=== PATIENT | female | born 1955 | race African-American/Black ===

== ENCOUNTER 2016-07-03 10:25 | Emergency (ER) | payer MEDICAID, OTHER ==
[~2016-07-03] VITALS: Ht 160 cm; Wt 98.0 kg
[~2016-07-03 10:25] MED LIST: ASPI325T2 PO; ATOR10TA PO; CLOP75TA2 PO; LEVO88TA7 PO; METO-296 PO; PROT40 PO; SIME1LIQ MC
[2016-07-03 12:24] LABS: BASOPHILS % 0.3 % (0.0-2.0); DIFFERENTIAL COMMENT 0; HEMATOCRIT. 43.4 % (36.0-48.0); MEAN CORPUSCULAR HEMOGLOBIN 25.4 pg (28.0-32.0); MEAN CORPUSCULAR HGB CONC 32.3 g/dL (31.0-37.0); MEAN CORPUSCULAR VOLUME 78.7 fL (81.0-99.0); MEAN PLATELET VOLUME 9.5 fl (7.4-10.4); MONOCYTES % 6.2 % (2.0-8.0); NEUTROPHILS % 41.5 % (40.0-76.0); PLATELET 149 x1000/uL (130-400); RED BLOOD CELL COUNT 5.51 mill/uL (4.2-5.4); RED CELL DISTRIBUTION WIDTH 15.7 % (11.6-14.6); WHITE BLOOD COUNT 5.6 x1000/uL (4.5-11.0)
[2016-07-03 12:25] LABS: CHLORIDE 103 mEq/L (98-107); INDEX HEMOLYSI 1 (1-3); INDEX ICTERIC 1 (1-4); INDEX LIPEMIC 1 (1-3)
[2016-07-03 12:31] LABS: ALANINE AMINOTRANSFERASE 18 IU/L (13-61); ANION GAP 11; CALCIUM 9.6 mg/dL (8.5-10.1); CARBON DIOXIDE 32 mEq/L (21-32); LIPASE 100 IU/L (73-393); UREA NITROGEN BLOOD 9 mg/dL (7-21); eGFR > 60 mL/min (>60)
[2016-07-03 13:17] LABS: CLARITY URINE CLEAR (CLEAR); COLOR URINE YELLOW (YELLOW); GLUCOSE URINE NEGATIVE (NEGATIVE); KETONES URINE NEGATIVE (NEGATIVE); LEUKOCYTE ESTERASE URINE TRACE (NEGATIVE); NITRITE URINE NEGATIVE (NEGATIVE); OCCULT BLOOD URINE NEGATIVE (NEGATIVE); PH URINE 5.5 (4.5-8.0); PROTEIN URINE NEGATIVE (NEGATIVE); SPECIFIC GRAVITY URINE 1.017 (1.005-1.030)
[2016-07-03] MEDS ORDERED: LEVOFLOXACIN 500MG TABLET PO ONE (13:30)
[2016-07-03 13:37] LABS: BACTERIA URINE TRACE; RBC URINE NONE SEEN /hpf (0-2); SQUAMOUS EPITHELIAL CELL URINE 1+ /lpf (RARE/1+); WBC URINE 0-2 /hpf (0-2)
[2016-07-03] MEDS ORDERED: ACETAMINOPHEN 325MG TABLET PO ONE (13:45)
[2016-07-03 14:09] VITALS: BP 140/80
== END 2016-07-03 14:17 | disposition home or self-care (01) ==
LOC: ER 12:06
DX: K59.09 Other constipation (principal); N39.0 Urinary tract infection, site not specified; R10.2 Pelvic and perineal pain; R10.9 Unspecified abdominal pain; R39.15 Urgency of urination; I10 Essential (primary) hypertension; E78.5 Hyperlipidemia, unspecified; J45.909 Unspecified asthma, uncomplicated; Z79.82 Long term (current) use of aspirin; Z79.899 Other long term (current) drug therapy
CPT/HCPCS: 36415; 74022; 80053; 81001; 83690; 85025; 99285

== ENCOUNTER 2018-03-07 07:38 | Emergency (ER) | payer OTHER ==
[~2018-03-07] VITALS: Ht 162.6 cm; Wt 85.5 kg
[~2018-03-07 07:38] MED LIST changes: +ASPI-986 PO; -ASPI325T2 PO; +CLOP75TA16 PO; -CLOP75TA2 PO; -METO-296 PO; +METO-396 PO
[2018-03-07] MEDS ORDERED: PHENAZOPYRIDINE HCL 100MG TABLET PO ONE (08:30)
[2018-03-07] MEDS ORDERED: ACETAMINOPHEN 325MG TABLET PO ONE (08:30)
[2018-03-07] MEDS ORDERED: KETOROLAC 15MG/ML VIAL IM ONE (08:30)
[2018-03-07] MEDS ORDERED: SODIUM CHLORIDE 0.9% 1,000 ML IV ONE (09:15)
[2018-03-07 09:27] LABS: CLARITY URINE CLEAR (CLEAR); COLOR URINE ORANGE (YELLOW); KETONES URINE NEGATIVE (NEGATIVE); LEUKOCYTE ESTERASE URINE NEGATIVE (NEGATIVE); NITRITE URINE NEGATIVE (NEGATIVE); OCCULT BLOOD URINE 3+ (NEGATIVE); PH URINE 5.5 (4.5-8.0); PROTEIN URINE NEGATIVE (NEGATIVE); SPECIFIC GRAVITY URINE 1.011 (1.005-1.030); UROBILINOGEN URINE 0.2 E.U./dL (0.2-1.0)
[2018-03-07 10:46] LABS: BASOPHILS % 0.9 % (0.0-2.0); EOSINOPHILS % 0.3 % (0.0-5.0); HEMATOCRIT. 39.2 % (36.0-48.0); HEMOGLOBIN. 12.7 g/dL (12.0-16.0); LYMPHOCYTES % 12.5 % (20.0-50.0); MEAN CORPUSCULAR HEMOGLOBIN 25.6 pg (28.0-32.0); MEAN CORPUSCULAR VOLUME 78.7 fL (81.0-99.0); MEAN PLATELET VOLUME 9.5 fl (7.4-10.4); NEUTROPHILS % 82.3 % (40.0-76.0); PLATELET 145 x1000/uL (130-400); RED BLOOD CELL COUNT 4.98 mill/uL (4.2-5.4); RED CELL DISTRIBUTION WIDTH 15.3 % (11.6-14.6)
[2018-03-07 10:51] LABS: CHLORIDE 107 mEq/L (98-107); INR 1.1; PROTHROMBIN TIME 10.6 sec (9.1-11.1)
[2018-03-07] MEDS ORDERED: OXYCODONE HCL 5MG TABLET PO ONE (11:45)
[2018-03-07 12:32] VITALS: BP 168/85
== END 2018-03-07 12:39 | disposition home or self-care (01) ==
LOC: ER 08:24
DX: R10.2 Pelvic and perineal pain (principal); R31.9 Hematuria, unspecified; N32.89 Other specified disorders of bladder; E86.0 Dehydration; R79.89 Other specified abnormal findings of blood chemistry
CPT/HCPCS: 36415; 74176; 80053; 81003; 83690; 85025; 85610; 96360; 96361; 96372; 99285; J1885; J7030; P9612

== ENCOUNTER 2018-03-07 21:28 | Inpatient (IN) | payer MEDICAID, OTHER ==
[~2018-03-07] VITALS: Ht 160 cm; Wt 93.0 kg
[2018-03-08] MEDS ORDERED: HYDROCODONE/ACETAMINOPHEN 5/325MG TABLET PO ONE (05:15)
[2018-03-08] MEDS ORDERED: FAMOTIDINE 20MG/2ML VIAL IV STA (06:40)
[2018-03-08] MEDS ORDERED: MAGNESIUM/ALUMINUM HYDROXIDE/SIMETHICONE 30ML UDC PO STA (06:40)
[2018-03-08] MEDS ORDERED: SODIUM CHLORIDE 0.9% 1,000 ML IV ONE (06:40)
[2018-03-08 06:51] LABS: HEMATOCRIT. 42.2 % (36.0-48.0); HEMOGLOBIN. 13.8 g/dL (12.0-16.0); RED BLOOD CELL COUNT 5.34 mill/uL (4.2-5.4)
[2018-03-08 06:52] LABS: BASOPHILS % 0.3 % (0.0-2.0); EOSINOPHILS % 0.1 % (0.0-5.0); MEAN CORPUSCULAR HEMOGLOBIN 25.8 pg (28.0-32.0); MEAN PLATELET VOLUME 10.8 fl (7.4-10.4); MONOCYTES % 7.1 % (2.0-8.0); NEUTROPHILS % 84.5 % (40.0-76.0); PLATELET 148 x1000/uL (130-400); RED CELL DISTRIBUTION WIDTH 15.3 % (11.6-14.6)
[2018-03-08 08:43] LABS: CHLORIDE 110 mEq/L (98-107)
[2018-03-08] MEDS ORDERED: MORPHINE SULFATE 2 MG/ML CPJ (NOT FOR IM USE) IV ONE (09:15)
[2018-03-08] MEDS ORDERED: ONDANSETRON HCL 4MG/2ML INJ IV ONE (09:15)
[2018-03-08] MEDS ORDERED: HYDRALAZINE HCL 50MG TABLET PO ONE (11:00)
[2018-03-08 11:44] LABS: CLARITY URINE CLOUDY (CLEAR); COLOR URINE DARK YELLOW (YELLOW); KETONES URINE NEGATIVE (NEGATIVE); LEUKOCYTE ESTERASE URINE TRACE (NEGATIVE); NITRITE URINE POSITIVE (NEGATIVE); OCCULT BLOOD URINE 3+ (NEGATIVE); PH URINE 6.5 (4.5-8.0); PROTEIN URINE NEGATIVE (NEGATIVE); SPECIFIC GRAVITY URINE 1.008 (1.005-1.030)
[2018-03-08] MEDS ORDERED: IPRATROPIUM/ALBUTEROL 0.5-3(2.5)MG/3ML NEB INH PRN (12:15)
[2018-03-08] MEDS ORDERED: HYDRALAZINE 20MG/ML VIAL IV PRN (12:15)
[2018-03-08] MEDS ORDERED: ACETAMINOPHEN 650MG SUPP PR PRN (12:15)
[2018-03-08] MEDS ORDERED: NA PHOS,M-B/NA PHOS,DI-BA ENEMA 118ML PR PRN (12:15)
[2018-03-08] MEDS ORDERED: MAGNESIUM/ALUMINUM HYDROXIDE/SIMETHICONE 30ML UDC PO PRN (12:15)
[2018-03-08] MEDS ORDERED: GUAIFENESIN 200MG/10ML SUGAR FREE UDC PO PRN (12:15)
[2018-03-08] MEDS ORDERED: DOCUSATE SODIUM 100MG CAPSULE PO PRN (12:15)
[2018-03-08] MEDS: HYDROCODONE/ACETAMINOPHEN 5/325MG TABLET PO PRN ×2 (15:45→20:30)
[2018-03-08 16:00] VITALS: BP 182/72
[2018-03-08 16:30] VITALS: BP 158/72
[2018-03-08] MEDS: PANTOPRAZOLE 40MG DR TABLET PO SCH (17:48)
[2018-03-08] MEDS: SODIUM CHLORIDE 0.45% 1,000 ML IV SCH (17:49)
[2018-03-08] MEDS: PIPERACILLIN/TAZ 2.25G PREMIX 50 ML IV SCH (17:49)
[2018-03-08 20:00] VITALS: BP 187/76
[2018-03-08] MEDS: METOPROLOL TARTRATE 25MG TABLET PO SCH (20:30)
[2018-03-08] MEDS: ATORVASTATIN CALCIUM 10MG TABLET PO SCH (20:31)
[2018-03-09] VITALS: BP 184/72
[2018-03-09] MEDS: PIPERACILLIN/TAZ 2.25G PREMIX 50 ML IV SCH ×3 (00:23→12:20)
[2018-03-09] MEDS: HYDROCODONE/ACETAMINOPHEN 5/325MG TABLET PO PRN ×3 (00:40→20:26)
[2018-03-09] MEDS: LORAZEPAM 0.5MG TABLET PO PRN (01:10)
[2018-03-09] MEDS ORDERED: HYDRALAZINE 10 MG in SODIUM CHLORIDE 0.9% 49.5 ML IV PRN (01:45)
[2018-03-09] MEDS: LEVOTHYROXINE SODIUM 88MCG TABLET PO SCH (05:48)
[2018-03-09] MEDS: PANTOPRAZOLE 40MG DR TABLET PO SCH (05:48)
[2018-03-09] MEDS: SODIUM CHLORIDE 0.45% 1,000 ML IV SCH ×2 (05:49→14:22)
[2018-03-09] MEDS: DIPHENHYDRAMINE 50MG/ML VIAL IV PRN ×2 (06:06→20:53)
[2018-03-09 06:18] LABS: HEMATOCRIT. 39.4 % (36.0-48.0); HEMOGLOBIN. 12.8 g/dL (12.0-16.0); MEAN CORPUSCULAR HEMOGLOBIN 25.4 pg (28.0-32.0); MEAN CORPUSCULAR VOLUME 77.8 fL (81.0-99.0); PLATELET 122 x1000/uL (130-400); RED BLOOD CELL COUNT 5.06 mill/uL (4.2-5.4); RED CELL DISTRIBUTION WIDTH 15.5 % (11.6-14.6)
[2018-03-09 06:30] LABS: CHLORIDE 109 mEq/L (98-107)
[2018-03-09 06:39] LABS: LDL CHOLESTEROL 98 mg/dL (5-100)
[2018-03-09 06:40] LABS: HDL CHOLESTEROL 91 mg/dL (40-59); T4 FREE 1.13 ng/dL (0.76-1.46)
[2018-03-09 06:46] VITALS: BP 148/66
[2018-03-09 08:00] VITALS: BP 165/55
[2018-03-09] MEDS: METOPROLOL TARTRATE 25MG TABLET PO SCH ×2 (08:18→20:26)
[2018-03-09] MEDS: NICOTINE 14MG PATCH TD SCH (08:55)
[2018-03-09] MEDS ORDERED: ASPIRIN 81 MG PO SCH (09:00)
[2018-03-09] MEDS ORDERED: MEDICATION NOT ON FORMULARY EA (Clopidogrel Bisulfate (Plavix) 75 MG) PO SCH (09:00)
[2018-03-09 10:32] LABS: PLATELET ESTIMATE NORMAL
[2018-03-09 12:00] VITALS: BP 146/86
[2018-03-09 16:00] VITALS: BP 158/70
[2018-03-09] MEDS ORDERED: ENOXAPARIN 30MG/0.3ML SYR SUBCUT SCH (18:00)
[2018-03-09] MEDS: ASPIRIN 81MG TABLET PO SCH (18:10)
[2018-03-09] MEDS ORDERED: CEFTRIAXONE 1 G PREMIX 50 ML IV SCH (18:30)
[2018-03-09] MEDS ORDERED: LEVOFLOXACIN 500MG PREMIX 100 ML IV NR (19:30)
[2018-03-09 20:00] VITALS: BP 156/63
[2018-03-09] MEDS: ATORVASTATIN CALCIUM 10MG TABLET PO SCH (20:26)
[2018-03-09] MEDS: ACETAMINOPHEN 325MG TABLET PO PRN (20:27)
[2018-03-09] MEDS: OXYBUTYNIN CHLORIDE 5MG TABLET PO SCH (20:53)
[2018-03-09] MEDS: HYDRALAZINE HCL 50MG TABLET PO SCH (21:02)
[2018-03-10] VITALS: BP 115/56
[2018-03-10 04:00] VITALS: BP 118/68
[2018-03-10] MEDS: HYDRALAZINE HCL 50MG TABLET PO SCH ×3 (05:23→21:07)
[2018-03-10 06:30] LABS: BASOPHILS % 0.5 % (0.0-2.0); EOSINOPHILS % 3.6 % (0.0-5.0); HEMATOCRIT. 34.4 % (36.0-48.0); HEMOGLOBIN. 11.4 g/dL (12.0-16.0); LYMPHOCYTES % 10.6 % (20.0-50.0); MEAN CORPUSCULAR HEMOGLOBIN 25.7 pg (28.0-32.0); MEAN CORPUSCULAR VOLUME 77.7 fL (81.0-99.0); MEAN PLATELET VOLUME 10.3 fl (7.4-10.4); MONOCYTES % 4.9 % (2.0-8.0); NEUTROPHILS % 80.4 % (40.0-76.0); PLATELET 105 x1000/uL (130-400); RED BLOOD CELL COUNT 4.43 mill/uL (4.2-5.4); RED CELL DISTRIBUTION WIDTH 15.6 % (11.6-14.6)
[2018-03-10 06:46] LABS: CHLORIDE 106 mEq/L (98-107)
[2018-03-10] MEDS: LEVOTHYROXINE SODIUM 88MCG TABLET PO SCH (06:53)
[2018-03-10] MEDS: PANTOPRAZOLE 40MG DR TABLET PO SCH (06:53)
[2018-03-10 07:10] LABS: LDL CHOLESTEROL 68 mg/dL (5-100)
[2018-03-10 07:12] LABS: HDL CHOLESTEROL 63 mg/dL (40-59)
[2018-03-10 08:00] VITALS: BP 140/67
[2018-03-10] MEDS: ASPIRIN 81MG TABLET PO SCH (08:28)
[2018-03-10] MEDS: METOPROLOL TARTRATE 25MG TABLET PO SCH ×2 (08:28→21:07)
[2018-03-10] MEDS: OXYBUTYNIN CHLORIDE 5MG TABLET PO SCH ×2 (08:28→21:07)
[2018-03-10] MEDS: NICOTINE 14MG PATCH TD SCH (08:43)
[2018-03-10] MEDS ORDERED: POTASSIUM CHLORIDE 20MEQ TABLET SR PO SCH (11:15)
[2018-03-10] MEDS: SODIUM CHLORIDE 0.45% 1,000 ML IV SCH ×2 (11:44→17:35)
[2018-03-10] MEDS: HYDROCODONE/ACETAMINOPHEN 5/325MG TABLET PO PRN ×3 (11:45→21:07)
[2018-03-10 12:00] VITALS: BP 109/55
[2018-03-10 16:00] VITALS: BP 116/54
[2018-03-10] MEDS: LEVOFLOXACIN 500MG PREMIX 100 ML IV SCH (17:30)
[2018-03-10] MEDS: ENOXAPARIN 30MG/0.3ML SYR SUBCUT SCH (17:31)
[2018-03-10 20:00] VITALS: BP 137/62
[2018-03-10] MEDS ORDERED: PANTOPRAZOLE 40MG DR TABLET PO SCH (21:00)
[2018-03-10] MEDS: ATORVASTATIN CALCIUM 10MG TABLET PO SCH (21:06)
[2018-03-10] MEDS: DIPHENHYDRAMINE 50MG/ML VIAL IV PRN (21:07)
[2018-03-11] VITALS: BP 131/67
[2018-03-11 04:00] VITALS: BP 132/57
[2018-03-11] MEDS: ENOXAPARIN 30MG/0.3ML SYR SUBCUT SCH ×2 (05:42→17:06)
[2018-03-11] MEDS: LEVOTHYROXINE SODIUM 88MCG TABLET PO SCH (05:43)
[2018-03-11] MEDS: HYDRALAZINE HCL 50MG TABLET PO SCH ×3 (05:43→22:00)
[2018-03-11 07:09] LABS: BASOPHILS % 0.3 % (0.0-2.0); EOSINOPHILS % 4.9 % (0.0-5.0); HEMATOCRIT. 35.1 % (36.0-48.0); HEMOGLOBIN. 11.5 g/dL (12.0-16.0); LYMPHOCYTES % 12.7 % (20.0-50.0); MEAN CORPUSCULAR HEMOGLOBIN 25.5 pg (28.0-32.0); MEAN CORPUSCULAR VOLUME 78.1 fL (81.0-99.0); MEAN PLATELET VOLUME 10.3 fl (7.4-10.4); MONOCYTES % 6.3 % (2.0-8.0); NEUTROPHILS % 75.8 % (40.0-76.0); PLATELET 103 x1000/uL (130-400); RED CELL DISTRIBUTION WIDTH 15.2 % (11.6-14.6)
[2018-03-11 07:14] LABS: CHLORIDE 104 mEq/L (98-107)
[2018-03-11 08:00] VITALS: BP 142/73
[2018-03-11] MEDS: SODIUM CHLORIDE 0.45% 1,000 ML IV SCH (08:37)
[2018-03-11] MEDS: ACETAMINOPHEN 325MG TABLET PO PRN ×2 (08:38→16:22)
[2018-03-11] MEDS: OXYBUTYNIN CHLORIDE 5MG TABLET PO SCH ×2 (08:39→20:40)
[2018-03-11] MEDS: ASPIRIN 81MG TABLET PO SCH (08:39)
[2018-03-11] MEDS: FAMOTIDINE 20MG TABLET PO SCH ×2 (08:39→20:40)
[2018-03-11] MEDS: METOPROLOL TARTRATE 25MG TABLET PO SCH ×2 (08:39→20:42)
[2018-03-11] MEDS: NICOTINE 14MG PATCH TD SCH (08:40)
[2018-03-11 12:00] VITALS: BP 141/60
[2018-03-11 16:00] VITALS: BP 168/72
[2018-03-11] MEDS ORDERED: LACTULOSE 20G/30ML UDC PO SCH (16:15)
[2018-03-11] MEDS ORDERED: BISACODYL 10MG SUPP PR SCH (16:15)
[2018-03-11] MEDS: ONDANSETRON HCL 4MG/2ML INJ IV PRN (16:22)
[2018-03-11 17:03] LABS: HEMOGLOBIN 12.9 g/dL (12.0-16.0); MEAN CORPUSCULAR HEMOGLOBIN 25.7 pg (28.0-32.0); MEAN CORPUSCULAR VOLUME 77.7 fL (81.0-99.0); PLATELET 126 x1000/uL (130-400); RED BLOOD CELL COUNT 5.02 mill/uL (4.2-5.4)
[2018-03-11] MEDS: LEVOFLOXACIN 500MG PREMIX 100 ML IV SCH (17:05)
[2018-03-11 20:00] VITALS: BP 121/56
[2018-03-11] MEDS: ATORVASTATIN CALCIUM 10MG TABLET PO SCH (20:40)
[2018-03-12] VITALS: BP 134/69
[2018-03-12] MEDS: LORAZEPAM 0.5MG TABLET PO PRN (00:08)
[2018-03-12] MEDS: HYDROCODONE/ACETAMINOPHEN 5/325MG TABLET PO PRN (01:40)
[2018-03-12] MEDS: ONDANSETRON HCL 4MG/2ML INJ IV PRN ×3 (01:40→17:02)
[2018-03-12 04:00] VITALS: BP 149/62
[2018-03-12] MEDS: LEVOTHYROXINE SODIUM 88MCG TABLET PO SCH (06:05)
[2018-03-12] MEDS: HYDRALAZINE HCL 50MG TABLET PO SCH ×3 (06:06→22:14)
[2018-03-12] MEDS: ACETAMINOPHEN 325MG TABLET PO PRN (06:06)
[2018-03-12] MEDS: ENOXAPARIN 30MG/0.3ML SYR SUBCUT SCH ×2 (06:07→17:02)
[2018-03-12 07:27] LABS: HEMATOCRIT 37.9 % (36.0-48.0); HEMOGLOBIN 12.4 g/dL (12.0-16.0); MEAN CORPUSCULAR HEMOGLOBIN 25.3 pg (28.0-32.0); MEAN CORPUSCULAR VOLUME 77.3 fL (81.0-99.0); PLATELET 145 x1000/uL (130-400); RED CELL DISTRIBUTION WIDTH 15.4 % (11.6-14.6)
[2018-03-12 07:40] LABS: CHLORIDE 104 mEq/L (98-107)
[2018-03-12 08:00] VITALS: BP 117/67
[2018-03-12] MEDS: NICOTINE 14MG PATCH TD SCH (08:00)
[2018-03-12] MEDS: METOPROLOL TARTRATE 25MG TABLET PO SCH ×2 (08:12→22:15)
[2018-03-12] MEDS: OXYBUTYNIN CHLORIDE 5MG TABLET PO SCH ×2 (08:12→22:14)
[2018-03-12] MEDS: FAMOTIDINE 20MG TABLET PO SCH ×2 (08:12→22:14)
[2018-03-12] MEDS: ASPIRIN 81MG TABLET PO SCH (08:12)
[2018-03-12 12:00] VITALS: BP 133/72
[2018-03-12 16:00] VITALS: BP 153/72
[2018-03-12] MEDS: LEVOFLOXACIN 500MG PREMIX 100 ML IV SCH (17:01)
[2018-03-12] MEDS: MORPHINE SULFATE 4 MG/ML CPJ (NOT FOR IM USE) IV PRN (17:29)
[2018-03-12] MEDS: DEXT 5%/0.45% NACL 1000ML 1,000 ML IV SCH (17:45)
[2018-03-12 20:00] VITALS: BP 151/71
[2018-03-12] MEDS: ATORVASTATIN CALCIUM 10MG TABLET PO SCH (22:13)
[2018-03-13] VITALS: BP 136/77
[2018-03-13 04:00] VITALS: BP 124/53
[2018-03-13] MEDS ORDERED: METRONIDAZOLE 500 MG PREMIX 100 ML IV SCH (04:15)
[2018-03-13] MEDS: HYDRALAZINE HCL 50MG TABLET PO SCH ×3 (06:25→22:00)
[2018-03-13] MEDS: METRONIDAZOLE 500 MG PREMIX 100 ML IV SCH ×3 (06:25→22:33)
[2018-03-13] MEDS: LEVOTHYROXINE SODIUM 88MCG TABLET PO SCH (06:25)
[2018-03-13] MEDS: ENOXAPARIN 30MG/0.3ML SYR SUBCUT SCH ×2 (06:26→18:00)
[2018-03-13 06:27] LABS: HEMOGLOBIN 11.9 g/dL (12.0-16.0); MEAN CORPUSCULAR HEMOGLOBIN 26.2 pg (28.0-32.0); PLATELET 158 x1000/uL (130-400); RED BLOOD CELL COUNT 4.55 mill/uL (4.2-5.4); RED CELL DISTRIBUTION WIDTH 15.2 % (11.6-14.6)
[2018-03-13 06:41] LABS: CHLORIDE 103 mEq/L (98-107)
[2018-03-13 08:00] VITALS: BP 142/55
[2018-03-13] MEDS: FAMOTIDINE 20MG TABLET PO SCH ×2 (09:04→20:53)
[2018-03-13] MEDS: METOPROLOL TARTRATE 25MG TABLET PO SCH (09:04)
[2018-03-13] MEDS: OXYBUTYNIN CHLORIDE 5MG TABLET PO SCH ×2 (09:04→20:53)
[2018-03-13] MEDS: NICOTINE 14MG PATCH TD SCH (09:04)
[2018-03-13] MEDS: ASPIRIN 81MG TABLET PO SCH (09:04)
[2018-03-13] MEDS: MORPHINE SULFATE 4 MG/ML CPJ (NOT FOR IM USE) IV PRN ×2 (09:11→15:29)
[2018-03-13 12:00] VITALS: BP 115/54
[2018-03-13] MEDS: DEXT 5%/0.45% NACL 1000ML 1,000 ML IV SCH ×2 (14:11→22:34)
[2018-03-13 16:00] VITALS: BP 97/51
[2018-03-13] MEDS: LEVOFLOXACIN 500MG PREMIX 100 ML IV SCH (17:59)
[2018-03-13 20:00] VITALS: BP 103/57
[2018-03-13] MEDS: ATORVASTATIN CALCIUM 10MG TABLET PO SCH (20:54)
[2018-03-14] VITALS: BP 108/53
[2018-03-14 04:00] VITALS: BP 108/50
[2018-03-14] MEDS: HYDRALAZINE HCL 50MG TABLET PO SCH ×2 (05:52→14:00)
[2018-03-14] MEDS: ENOXAPARIN 30MG/0.3ML SYR SUBCUT SCH (05:54)
[2018-03-14] MEDS: METRONIDAZOLE 500 MG PREMIX 100 ML IV SCH ×2 (05:55→14:20)
[2018-03-14] MEDS: LEVOTHYROXINE SODIUM 88MCG TABLET PO SCH (06:32)
[2018-03-14 06:47] LABS: HEMATOCRIT 34.1 % (36.0-48.0); HEMOGLOBIN 11.3 g/dL (12.0-16.0); MEAN CORPUSCULAR HEMOGLOBIN 25.6 pg (28.0-32.0); MEAN CORPUSCULAR VOLUME 77.4 fL (81.0-99.0); PLATELET 167 x1000/uL (130-400)
[2018-03-14 06:53] LABS: CHLORIDE 103 mEq/L (98-107)
[2018-03-14 08:00] VITALS: BP 115/45
[2018-03-14] MEDS: NICOTINE 14MG PATCH TD SCH (09:00)
[2018-03-14] MEDS ORDERED: CARVEDILOL 3.125 MG TABLET PO SCH (09:00)
[2018-03-14] MEDS: OXYBUTYNIN CHLORIDE 5MG TABLET PO SCH (09:14)
[2018-03-14] MEDS: ASPIRIN 81MG TABLET PO SCH (09:14)
[2018-03-14] MEDS: FAMOTIDINE 20MG TABLET PO SCH (09:14)
[2018-03-14] MEDS ORDERED: LACTULOSE 20G/30ML UDC PO SCH ×2 (09:30→12:30)
[2018-03-14] MEDS ORDERED: BISACODYL 10MG SUPP PR SCH (09:30)
[2018-03-14] MEDS ORDERED: POTASSIUM CHLORIDE 20MEQ TABLET SR PO SCH (11:00)
[2018-03-14] MEDS: DEXT 5%/0.45% NACL 1000ML 1,000 ML IV SCH (11:47)
[2018-03-14 12:00] VITALS: BP 118/48
[2018-03-14 16:00] VITALS: BP 113/56
[2018-03-14 16:35] VITALS: BP 20/113
[2018-03-18 13:06] LABS: ANTI-MYELOPEROXIDASE AB < 9.0 U/mL (0.0-9.0); ANTI-PROTEINASE 3 ABS < 3.5 U/mL (0.0-3.5)
[2018-03-18 14:18] LABS: ATYPICAL P-ANCA <1:20 titer (Neg:<1:20); CYTOPLASMIC C-ANCA <1:20 titer (Neg:<1:20); PERINUCLEAR P-ANCA <1:20 titer (Neg:<1:20)
== END 2018-03-14 17:30 | disposition home health service (06) | DRG 720 ==
LOC: ER 21:28 → 6EST 03-08 11:15 → ENRESERV 03-08 14:08 → SUPCPDRO 03-08 14:39
PROVIDERS: ADMIT Internal Medicine; ATTEND Internal Medicine
DX: A41.9 Sepsis, unspecified organism (principal); N17.9 Acute kidney failure, unspecified; D69.6 Thrombocytopenia, unspecified; K56.7 Ileus, unspecified; E86.0 Dehydration; N39.0 Urinary tract infection, site not specified; E03.9 Hypothyroidism, unspecified; E66.9 Obesity, unspecified; I10 Essential (primary) hypertension; E78.5 Hyperlipidemia, unspecified; R73.9 Hyperglycemia, unspecified; D50.9 Iron deficiency anemia, unspecified; E87.6 Hypokalemia; F17.210 Nicotine dependence, cigarettes, uncomplicated; J45.909 Unspecified asthma, uncomplicated; K58.9 Irritable bowel syndrome, unspecified; N32.89 Other specified disorders of bladder; Z68.36 Body mass index [BMI] 36.0-36.9, adult; Z79.82 Long term (current) use of aspirin; Z79.899 Other long term (current) drug therapy
CPT/HCPCS: 36415; 71045; 74018; 74176; 76705; 76770; 80048; 80061; 83036; 83520; 84145; 84439; 84443; 85027; 86256; 93005; 93306; 93970; 96361; 96374; 96375; 97116; 97162; 99285; J0360; J0696; J1200; J1650; J1956; J2270; J2405; J2543; J3490; J7030; J7042; J7620; A4315

== ENCOUNTER 2018-03-18 03:30 | Emergency (ER) | payer MEDICAID ==
[~2018-03-18] VITALS: Ht 160 cm; Wt 90.0 kg
[~2018-03-18 03:30] MED LIST changes: -METO-396 PO; -PROT40 PO
[2018-03-18 07:04] VITALS: BP 126/76
== END 2018-03-18 07:25 | disposition home or self-care (01) ==
LOC: ER 03:30
DX: Z46.6 Encounter for fitting and adjustment of urinary device (principal)
CPT/HCPCS: 99283

== ENCOUNTER 2018-04-02 06:44 | Emergency (ER) | payer MEDICAID ==
[~2018-04-02] VITALS: Ht 162.6 cm; Wt 91.0 kg
[2018-04-02] MEDS ORDERED: PHENAZOPYRIDINE HCL 100MG TABLET PO ONE (07:15)
[2018-04-02 09:32] LABS: CLARITY URINE CLEAR (CLEAR); COLOR URINE YELLOW (YELLOW); KETONES URINE NEGATIVE (NEGATIVE); LEUKOCYTE ESTERASE URINE 3+ (NEGATIVE); NITRITE URINE NEGATIVE (NEGATIVE); OCCULT BLOOD URINE 1+ (NEGATIVE); PH URINE 6.5 (4.5-8.0); PROTEIN URINE NEGATIVE (NEGATIVE); SPECIFIC GRAVITY URINE 1.009 (1.005-1.030); UROBILINOGEN URINE 0.2 E.U./dL (0.2-1.0)
[2018-04-02 10:16] VITALS: BP 144/69
== END 2018-04-02 10:19 | disposition home or self-care (01) ==
LOC: ER 06:58
DX: N39.0 Urinary tract infection, site not specified (principal); J45.909 Unspecified asthma, uncomplicated; E03.9 Hypothyroidism, unspecified; Z79.82 Long term (current) use of aspirin; Z79.899 Other long term (current) drug therapy
CPT/HCPCS: 99283

== ENCOUNTER 2018-07-10 19:07 | Emergency (ER) | payer MEDICAID ==
[~2018-07-10] VITALS: Ht 160 cm; Wt 100.0 kg
[2018-07-10 21:58] LABS: CLARITY URINE CLOUDY (CLEAR); COLOR URINE YELLOW (YELLOW); KETONES URINE NEGATIVE (NEGATIVE); LEUKOCYTE ESTERASE URINE 3+ (NEGATIVE); NITRITE URINE NEGATIVE (NEGATIVE); OCCULT BLOOD URINE 3+ (NEGATIVE); PROTEIN URINE NEGATIVE (NEGATIVE); SPECIFIC GRAVITY URINE 1.015 (1.005-1.030)
[2018-07-11] MEDS ORDERED: SODIUM CHLORIDE 0.9% 1,000 ML IV ONE (00:01)
[2018-07-11] MEDS ORDERED: CEFTRIAXONE 1 G PREMIX 50 ML IV ONE (00:15)
[2018-07-11] MEDS ORDERED: CLONIDINE 0.1MG TABLET PO ONE (00:15)
[2018-07-11 02:15] LABS: BASOPHILS % 1.5 % (0.0-2.0); EOSINOPHILS % 3.3 % (0.0-5.0); HEMATOCRIT. 27.7 % (36.0-48.0); HEMOGLOBIN. 8.9 g/dL (12.0-16.0); MEAN CORPUSCULAR HEMOGLOBIN 25.4 pg (28.0-32.0); MEAN CORPUSCULAR VOLUME 78.9 fL (81.0-99.0); MEAN PLATELET VOLUME 9.1 fl (7.4-10.4); MONOCYTES % 2.9 % (2.0-8.0); NEUTROPHILS % 65.3 % (40.0-76.0); PLATELET 114 x1000/uL (130-400); RED BLOOD CELL COUNT 3.51 mill/uL (4.2-5.4)
[2018-07-11 02:20] LABS: CHLORIDE 106 mEq/L (98-107)
[2018-07-11 02:21] LABS: PROTHROMBIN TIME 10.4 sec (9.1-11.1)
[2018-07-11 04:02] VITALS: BP 152/71
== END 2018-07-11 04:07 | disposition home or self-care (01) ==
LOC: ER 19:07
DX: N39.0 Urinary tract infection, site not specified (principal); R31.0 Gross hematuria; I10 Essential (primary) hypertension; F17.210 Nicotine dependence, cigarettes, uncomplicated
CPT/HCPCS: 36415; 74176; 80053; 81003; 83690; 85025; 85610; 96374; 99284; J0696; J7030

== ENCOUNTER 2019-01-31 08:38 | Emergency (ER) | payer MEDICAID ==
[~2019-01-31] VITALS: Ht 160 cm; Wt 92.0 kg
[~2019-01-31 08:38] MED LIST changes: -CLOP75TA16 PO; +CLOP75TA4 PO
[2019-01-31] MEDS ORDERED: ACETAMINOPHEN 325MG TABLET PO ONE (10:00)
[2019-01-31] MEDS ORDERED: DIPHENHYDRAMINE 25MG CAPSULE PO ONE (10:00)
[2019-01-31] MEDS ORDERED: DEXAMETHASONE 10 MG/ML VIAL IM ONE (10:00)
[2019-01-31 10:55] LABS: CLARITY URINE CLEAR (CLEAR); COLOR URINE YELLOW (YELLOW); KETONES URINE NEGATIVE (NEGATIVE); LEUKOCYTE ESTERASE URINE NEGATIVE (NEGATIVE); NITRITE URINE NEGATIVE (NEGATIVE); OCCULT BLOOD URINE NEGATIVE (NEGATIVE); PH URINE 5.5 (4.5-8.0); PROTEIN URINE NEGATIVE (NEGATIVE); UROBILINOGEN URINE 0.2 E.U./dL (0.2-1.0)
[2019-01-31 11:48] VITALS: BP 162/72
== END 2019-01-31 11:51 | disposition home or self-care (01) ==
LOC: ER 08:38
DX: M54.41 Lumbago with sciatica, right side (principal); R21 Rash and other nonspecific skin eruption; F17.200 Nicotine dependence, unspecified, uncomplicated; Z87.440 Personal history of urinary (tract) infections; K59.00 Constipation, unspecified; E03.9 Hypothyroidism, unspecified; Z79.82 Long term (current) use of aspirin; Z79.899 Other long term (current) drug therapy
CPT/HCPCS: 81003; 96372; 99283; J1100; Q0163

== ENCOUNTER 2019-02-10 09:15 | Emergency (ER) | payer MEDICAID ==
[~2019-02-10] VITALS: Ht 160 cm; Wt 93.0 kg
[2019-02-10 10:34] VITALS: BP 166/76
== END 2019-02-10 10:37 | disposition home or self-care (01) ==
LOC: ER 09:15
DX: B86 Scabies (principal); R03.0 Elevated blood-pressure reading, without diagnosis of hypertension
CPT/HCPCS: 99283

== ENCOUNTER 2019-07-03 06:34 | Emergency (ER) | payer MEDICAID ==
[~2019-07-03] VITALS: Ht 165.1 cm; Wt 79.0 kg
[2019-07-03] MEDS ORDERED: KETOROLAC 30MG/ML VIAL IV STA (06:47)
[2019-07-03 07:16] LABS: BASOPHILS % 1.8 % (0.0-2.0); EOSINOPHILS % 7.5 % (0.0-5.0); HEMATOCRIT. 40.9 % (36.0-48.0); HEMOGLOBIN. 13.5 g/dL (12.0-16.0); LYMPHOCYTES % 40.9 % (20.0-50.0); MEAN CORPUSCULAR HEMOGLOBIN 25.2 pg (28.0-32.0); MEAN CORPUSCULAR VOLUME 76.6 fL (81.0-99.0); MEAN PLATELET VOLUME 8.9 fl (7.4-10.4); MONOCYTES % 8.5 % (2.0-8.0); NEUTROPHILS % 41.3 % (40.0-76.0); PLATELET 148 x1000/uL (130-400); RED BLOOD CELL COUNT 5.33 mill/uL (4.2-5.4); RED CELL DISTRIBUTION WIDTH 16.1 % (11.6-14.6)
[2019-07-03 07:18] LABS: CHLORIDE 109 mEq/L (98-107)
[2019-07-03 07:19] LABS: PROTHROMBIN TIME 10.7 sec (9.6-11.0)
[2019-07-03 07:30] LABS: CLARITY URINE CLEAR (CLEAR); COLOR URINE YELLOW (YELLOW); KETONES URINE NEGATIVE (NEGATIVE); LEUKOCYTE ESTERASE URINE NEGATIVE (NEGATIVE); NITRITE URINE NEGATIVE (NEGATIVE); OCCULT BLOOD URINE NEGATIVE (NEGATIVE); PROTEIN URINE NEGATIVE (NEGATIVE); SPECIFIC GRAVITY URINE 1.013 (1.005-1.030); UROBILINOGEN URINE 0.2 E.U./dL (0.2-1.0)
[2019-07-03 08:49] VITALS: BP 130/55
== END 2019-07-03 09:01 | disposition home or self-care (01) ==
LOC: ER 06:47
DX: R10.32 Left lower quadrant pain (principal); R03.0 Elevated blood-pressure reading, without diagnosis of hypertension; E03.9 Hypothyroidism, unspecified; K21.9 Gastro-esophageal reflux disease without esophagitis; J45.909 Unspecified asthma, uncomplicated; Z79.899 Other long term (current) drug therapy; Z79.82 Long term (current) use of aspirin
CPT/HCPCS: 36415; 80053; 81003; 83690; 85025; 85610; 96374; 99283; J1885

== ENCOUNTER 2020-03-12 11:19 | Emergency (ER) | payer MEDICARE, MEDICAID ==
[~2020-03-12] VITALS: Ht 160 cm; Wt 93.0 kg
[2020-03-12 11:21] VITALS: BP 107/71
== END 2020-03-12 13:00 | disposition home or self-care (01) ==
LOC: ER 11:19
DX: Z76.0 Encounter for issue of repeat prescription (principal); J45.909 Unspecified asthma, uncomplicated; Z79.899 Other long term (current) drug therapy; Z79.82 Long term (current) use of aspirin
CPT/HCPCS: 99283

== ENCOUNTER 2021-08-15 09:30 | Emergency (ER) | payer MEDICARE, MEDICAID ==
[~2021-08-15] VITALS: Ht 160 cm; Wt 92.0 kg
[~2021-08-15 09:30] MED LIST changes: +CLOP-31 PO; -CLOP75TA4 PO
[2021-08-15 12:31] LABS: BASOPHILS % 1.5 % (0.0-2.0); EOSINOPHILS % 5.9 % (0.0-5.0); HEMATOCRIT. 38.3 % (36.0-48.0); HEMOGLOBIN. 12.2 g/dL (12.0-16.0); LYMPHOCYTES % 29.6 % (20.0-50.0); MEAN CORPUSCULAR VOLUME 75.4 fL (81.0-99.0); MEAN PLATELET VOLUME 9.3 fl (7.4-10.4); MONOCYTES % 7.6 % (2.0-8.0); NEUTROPHILS % 55.4 % (40.0-76.0); PLATELET 162 x1000/uL (130-400); RED BLOOD CELL COUNT 5.09 mill/uL (4.2-5.4); RED CELL DISTRIBUTION WIDTH 15.5 % (11.6-14.6)
[2021-08-15 12:38] LABS: CHLORIDE 107 mEq/L (98-107)
[2021-08-15] MEDS ORDERED: FUROSEMIDE 20MG/2ML VIAL IVP ONE (18:30)
[2021-08-15] MEDS ORDERED: CLONIDINE 0.2MG TABLET PO ONE (18:30)
[2021-08-15] MEDS ORDERED: KETOROLAC 30MG/ML VIAL IV NR (19:45)
[2021-08-15] MEDS ORDERED: CLONIDINE 0.2MG TABLET PO NR (19:45)
[2021-08-15] MEDS ORDERED: KETOROLAC 30MG/ML VIAL IV ONE (19:45)
[2021-08-15] MEDS ORDERED: FUROSEMIDE 20MG/2ML VIAL IVP NR (19:45)
[2021-08-15] MEDS ORDERED: LISI10TA26 MT (21:13)
[2021-08-15 21:36] VITALS: BP 168/57
== END 2021-08-15 21:36 | disposition home or self-care (01) ==
LOC: ER 09:30
DX: M79.89 Other specified soft tissue disorders (principal); I16.0 Hypertensive urgency; R20.8 Other disturbances of skin sensation; M79.662 Pain in left lower leg; M79.661 Pain in right lower leg; M79.672 Pain in left foot; M79.671 Pain in right foot; E66.9 Obesity, unspecified; Z68.36 Body mass index [BMI] 36.0-36.9, adult
CPT/HCPCS: 36415; 71045; 80053; 83880; 84484; 85025; 93005; 93970; 96374; 96375; 99285; J1885; J1940

== ENCOUNTER 2021-08-22 05:55 | Emergency (ER) | payer MEDICARE, MEDICAID ==
[~2021-08-22] VITALS: Ht 162.6 cm; Wt 100.0 kg
[~2021-08-22 05:55] MED LIST changes: +LISI10TA26 MT
[2021-08-22 06:02] VITALS: BP 119/61
[2021-08-22 07:46] LABS: CHLORIDE 107 mEq/L (98-107)
[2021-08-22 07:50] LABS: BASOPHILS % 1.2 % (0.0-2.0); EOSINOPHILS % 5.2 % (0.0-5.0); HEMATOCRIT. 38.3 % (36.0-48.0); HEMOGLOBIN. 12.4 g/dL (12.0-16.0); LYMPHOCYTES % 28.1 % (20.0-50.0); MEAN CORPUSCULAR HEMOGLOBIN 24.3 pg (28.0-32.0); MEAN CORPUSCULAR VOLUME 75.2 fL (81.0-99.0); MEAN PLATELET VOLUME 9.7 fl (7.4-10.4); MONOCYTES % 7.8 % (2.0-8.0); NEUTROPHILS % 57.7 % (40.0-76.0); PLATELET 173 x1000/uL (130-400)
== END 2021-08-22 09:22 | disposition home or self-care (01) ==
LOC: ER 06:24
DX: R60.0 Localized edema (principal); I10 Essential (primary) hypertension
CPT/HCPCS: 36415; 71045; 80053; 83880; 85025; 93970; 99285

== ENCOUNTER 2021-09-06 13:32 | Emergency (ER) | payer MEDICARE, MEDICAID ==
[~2021-09-06] VITALS: Ht 167.6 cm; Wt 115.0 kg
[2021-09-06 13:54] VITALS: BP 163/71
[2021-09-06 15:40] LABS: BASOPHILS % 0.2 % (0.0-2.0); EOSINOPHILS % 4.1 % (0.0-5.0); HEMATOCRIT. 38.4 % (36.0-48.0); HEMOGLOBIN. 12.2 g/dL (12.0-16.0); LYMPHOCYTES % 32.4 % (20.0-50.0); MEAN CORPUSCULAR HEMOGLOBIN 24.2 pg (28.0-32.0); MEAN CORPUSCULAR VOLUME 76.4 fL (81.0-99.0); MEAN PLATELET VOLUME 9.7 fl (7.4-10.4); MONOCYTES % 7.5 % (2.0-8.0); NEUTROPHILS % 55.8 % (40.0-76.0); PLATELET 169 x1000/uL (130-400); RED BLOOD CELL COUNT 5.03 mill/uL (4.2-5.4); RED CELL DISTRIBUTION WIDTH 16.3 % (11.6-14.6)
[2021-09-06 15:49] LABS: CHLORIDE 109 mEq/L (98-107)
[2021-09-06] MEDS ORDERED: IBUPROFEN 400MG TABLET PO ONE (18:30)
[2021-09-06] MEDS ORDERED: FURO-152 PO (21:59)
[2021-09-06] MEDS ORDERED: TRAM50TA3 MT (21:59)
[2021-09-06] MEDS ORDERED: IBUP-2028 MT (21:59)
== END 2021-09-06 23:08 | disposition home or self-care (01) ==
LOC: ER 13:32
DX: M79.662 Pain in left lower leg (principal); M79.661 Pain in right lower leg; R60.9 Edema, unspecified; Z76.0 Encounter for issue of repeat prescription
CPT/HCPCS: 36415; 71045; 80053; 83880; 85025; 93005; 93970; 99285

== ENCOUNTER 2021-10-13 17:27 | Emergency (ER) | payer MEDICARE, MEDICAID ==
[~2021-10-13] VITALS: Ht 152.4 cm; Wt 91.0 kg
[~2021-10-13 17:27] MED LIST changes: +FURO-152 PO; +IBUP-2028 MT; +TRAM50TA3 MT
[2021-10-13 17:31] VITALS: BP 173/63
[2021-10-13 22:02] LABS: BASOPHILS % 0.8 % (0.0-2.0); EOSINOPHILS % 0.9 % (0.0-5.0); HEMATOCRIT. 39.9 % (36.0-48.0); HEMOGLOBIN. 12.5 g/dL (12.0-16.0); LYMPHOCYTES % 44.7 % (20.0-50.0); MEAN CORPUSCULAR HEMOGLOBIN 23.8 pg (28.0-32.0); MEAN CORPUSCULAR VOLUME 75.9 fL (81.0-99.0); MEAN PLATELET VOLUME 9.7 fl (7.4-10.4); MONOCYTES % 11.7 % (2.0-8.0); NEUTROPHILS % 41.9 % (40.0-76.0); PLATELET 149 x1000/uL (130-400); RED BLOOD CELL COUNT 5.26 mill/uL (4.2-5.4); RED CELL DISTRIBUTION WIDTH 17.1 % (11.6-14.6)
[2021-10-13 22:08] LABS: CHLORIDE 105 mEq/L (98-107)
[2021-10-13] MEDS ORDERED: BENZ200C52 MT (23:31)
[2021-10-13] MEDS ORDERED: AMOX500T2 MT (23:31)
== END 2021-10-13 23:45 | disposition home or self-care (01) ==
LOC: ER 17:27
DX: R05.9 Cough, unspecified (principal); M79.89 Other specified soft tissue disorders; I10 Essential (primary) hypertension; R79.89 Other specified abnormal findings of blood chemistry; E87.6 Hypokalemia; D72.819 Decreased white blood cell count, unspecified
CPT/HCPCS: 36415; 71045; 80053; 83880; 85025; 93005; 99285

== ENCOUNTER 2022-06-13 06:40 | Emergency (ER) | payer MEDICARE, MEDICAID ==
[~2022-06-13] VITALS: Ht 167.6 cm; Wt 91.0 kg
[~2022-06-13 06:40] MED LIST changes: +AMOX500T2 MT; +BENZ200C52 MT
[2022-06-13] MEDS ORDERED: ONDANSETRON 4MG ODT PO STA (08:26)
[2022-06-13] MEDS ORDERED: MAGNESIUM/ALUMINUM HYDROXIDE/SIMETHICONE 30ML UDC PO STA (08:26)
[2022-06-13] MEDS ORDERED: LOPERAMIDE HCL 2MG CAPSULE PO ONE (08:30)
[2022-06-13 09:08] LABS: BASOPHILS % 0.7 % (0.0-2.0); EOSINOPHILS % 0.7 % (0.0-5.0); HEMATOCRIT. 41.1 % (36.0-48.0); HEMOGLOBIN. 13.1 g/dL (12.0-16.0); LYMPHOCYTES % 15.1 % (20.0-50.0); MEAN CORPUSCULAR HEMOGLOBIN 24.7 pg (28.0-32.0); MEAN CORPUSCULAR VOLUME 77.5 fL (81.0-99.0); MEAN PLATELET VOLUME 9.9 fl (7.4-10.4); MONOCYTES % 4.5 % (2.0-8.0); PLATELET 157 x1000/uL (130-400); RED CELL DISTRIBUTION WIDTH 16.3 % (11.6-14.6)
[2022-06-13 09:17] LABS: CHLORIDE 107 mEq/L (98-107)
[2022-06-13 09:31] LABS: CLARITY URINE CLOUDY (CLEAR); COLOR URINE YELLOW (YELLOW); KETONES URINE NEGATIVE (NEGATIVE); LEUKOCYTE ESTERASE URINE TRACE (NEGATIVE); NITRITE URINE NEGATIVE (NEGATIVE); OCCULT BLOOD URINE TRACE (NEGATIVE); PROTEIN URINE NEGATIVE (NEGATIVE); SPECIFIC GRAVITY URINE 1.011 (1.005-1.030); UROBILINOGEN URINE 0.2 E.U./dL (0.2-1.0)
[2022-06-13 09:33] LABS: PROTHROMBIN TIME 10.4 sec (9.6-11.0)
[2022-06-13 11:00] VITALS: BP 200/90
[2022-06-13] MEDS ORDERED: ACETAMINOPHEN 325MG TABLET PO NR (11:00)
[2022-06-13] MEDS ORDERED: KETOROLAC 60MG/2ML VIAL IM NR (11:00)
[2022-06-13] MEDS ORDERED: IMOD MT (11:03)
[2022-06-13] MEDS ORDERED: METR-167 MT (11:03)
[2022-06-13] MEDS ORDERED: SULF1TAB48 MT (11:03)
[2022-06-13] MEDS ORDERED: SULFAMETHOXAZOLE/TRIMETHOPRIM 800/160MG TABLET PO ONE (11:15)
[2022-06-13] MEDS ORDERED: METRONIDAZOLE 500MG TABLET PO ONE (11:15)
== END 2022-06-13 12:04 | disposition home or self-care (01) ==
LOC: ER 06:40
DX: N39.0 Urinary tract infection, site not specified (principal); J45.909 Unspecified asthma, uncomplicated; Z86.39 Personal history of other endocrine, nutritional and metabolic disease; Z79.82 Long term (current) use of aspirin; Z79.899 Other long term (current) drug therapy
CPT/HCPCS: 36415; 74176; 80053; 81003; 83690; 85025; 85610; 96372; 99285; J1885; Q0162

== ENCOUNTER 2023-11-27 11:53 | Emergency (ER) | payer MEDICARE, MEDICAID ==
[~2023-11-27] VITALS: Ht 165.1 cm; Wt 100.0 kg
[~2023-11-27 11:53] MED LIST changes: +IMOD MT; +METR-167 MT; +SULF1TAB48 MT
[2023-11-27 12:09] VITALS: O2SAT 97
[2023-11-27 12:45] LABS: BASOPHILS % 1.3 % (0.0-2.0); DIFFERENTIAL COMMENT 0; HEMATOCRIT. 40.3 % (36.0-48.0); HEMOGLOBIN. 12.7 g/dL (12.0-16.0); LYMPHOCYTES % 34.6 % (20.0-50.0); MEAN CORPUSCULAR HEMOGLOBIN 24.6 pg (28.0-32.0); MEAN CORPUSCULAR HGB CONC 31.4 g/dL (31.0-37.0); MEAN CORPUSCULAR VOLUME 78.3 fL (81.0-99.0); MEAN PLATELET VOLUME 9.4 fl (7.4-10.4); MONOCYTES % 8.5 % (2.0-8.0); NEUTROPHILS % 50.6 % (40.0-76.0); PLATELET 177 x1000/uL (130-400); RED BLOOD CELL COUNT 5.15 mill/uL (4.2-5.4); RED CELL DISTRIBUTION WIDTH 16.6 % (11.6-14.6); WHITE BLOOD COUNT 4.3 x1000/uL (4.5-11.0)
[2023-11-27 12:52] LABS: CALCIUM 9.5 mg/dL (8.7-10.4)
[2023-11-27 12:57] LABS: CREATININE 1.1 mg/dL (0.6-1.0)
[2023-11-27 16:27] VITALS: BP 155/90; PULSE 58; RESP 18; TEMP 98.3
== END 2023-11-27 16:27 | disposition home or self-care (01) ==
LOC: ER 11:53
DX: R09.A2 Foreign body sensation, throat (principal); M54.2 Cervicalgia; J45.909 Unspecified asthma, uncomplicated; Z79.899 Other long term (current) drug therapy; Z86.39 Personal history of other endocrine, nutritional and metabolic disease
CPT/HCPCS: 36415; 70490; 80048; 85025; 99284

== ENCOUNTER 2025-01-27 09:06 | Emergency (ER) | payer BC, MEDICAID ==
[~2025-01-27] VITALS: Ht 170.2 cm; Wt 99.0 kg
[2025-01-27 09:08] VITALS: BP 188/74; PULSE 74; RESP 18; TEMP 36.6; O2SAT 98
[2025-01-27] MEDS: TETRACAINE 0.5% OPHTH DROPS 4ML BOTHEYE ONE (10:50)
[2025-01-27] MEDS: FLUORESCEIN SODIUM 1MG/STRIP BOTHEYE ONE (10:50)
[2025-01-27] MEDS ORDERED: OCUFLX RIGHTEYE (11:50)
== END 2025-01-27 12:12 | disposition home or self-care (01) ==
LOC: ER 09:06
DX: S05.01XA Injury of conjunctiva and corneal abrasion without foreign body, right eye, initial encounter (principal); I10 Essential (primary) hypertension; J45.909 Unspecified asthma, uncomplicated; E03.9 Hypothyroidism, unspecified; M19.90 Unspecified osteoarthritis, unspecified site; Z79.02 Long term (current) use of antithrombotics/antiplatelets; Z79.82 Long term (current) use of aspirin; Z79.899 Other long term (current) drug therapy; X58.XXXA Exposure to other specified factors, initial encounter; Y93.89 Activity, other specified; Y92.89 Other specified places as the place of occurrence of the external cause; Y99.8 Other external cause status
CPT/HCPCS: 99283